=== PATIENT | male | born 1950 ===

== ENCOUNTER 2017-03-23 12:11 | Emergency (ER) | payer MEDICARE ==
[2017-03-23 13:23] VITALS: BMI 26.1
[2017-03-23] MEDS ORDERED: Sodium Chloride 0.9% 1,000 ML IV STA (13:31)
[2017-03-23] MEDS ORDERED: Iohexol 240 (50 ml) ONE (13:51)
--- NOTE | 2017-03-23 14:06 | ED PDOC ---
Arrival/HPI - General Historian: Patient <EITAN SERVIN - Last Filed: 03/23/17 16:46> <Klever Davis DO - Last Filed: 03/23/17 18:40> - General Chief Complaint: GI Problem Time Seen by Provider: 03/23/17 13:31 - History of Present Illness Narrative History of Present Illness (Text): 03/23/17 14:02 Mr. Moreno is a 67 year old male with past medical history of HTN, elevated lipids who was sent to the ED by his PCP Dr. Sanchez for a 3 day history of diarrhea. He indicates that he has had watery discharge diarrhea 15 minutes after eating for the past three days. He expresses limited oral intake for this reason for the past three days. He credits his dizziness and weakness to his presenting illness. He denies any blood or mucous with his stools. He denies any fever, abdominal pain, sick contacts or travel. He does report that he did eat at a [employer] food restaurant on Tuesday that could potentially be the reason for his symptoms. (EITAN SERVIN) Past Medical History - Provider Review Nursing Documentation Reviewed: Yes - Travel History Have you recently traveled outside [place] w/in the past 3 mons?: No - Past History Past History: Non-Contributing - Infectious Disease Hx of Infectious Diseases: None - Past Medical History Past Medical History: Non-Contributing - Cardiac Hx Hypertension: Yes - Psychiatric Hx Substance Use: No - Anesthesia Hx Anesthesia: No Hx Anesthesia Reactions: No <EITNA SERVIN - Last Filed: 03/23/17 16:46> Family/Social History Family/Social History: No Known Family HX Smoking Status: Current Some Days Smoker Hx Alcohol Use: No Hx Substance Use: No <EITAN SERVIN - Last Filed: 03/23/17 16:46> Allergies/Home Meds <EITAN SERVIN - Last Filed: 03/23/17 16:46> <Klever Davis DO - Last Filed: 03/23/17 18:40> Allergies/Adverse Reactions: Allergies No Known Allergies Allergy (Verified 07/21/16 10:58) Home Medications: Home Meds Medication Instructions Recorded Confirmed Valsartan 320 mg PO DAILY 07/21/16 07/21/16 Review of Systems - Review of Systems Constitutional: Fatigue, Other (weakness) Eyes: absent: Vision Changes ENT: absent: Hearing Changes Respiratory: absent: SOB, Cough Cardiovascular: absent: Chest Pain, Palpitations Gastrointestinal: Stool Changes, Diarrhea, Nausea. absent: Abdominal Pain, Vomiting, Appetite Changes, Hematochezia Genitourinary Male: absent: Dysuria, Frequency Musculoskeletal: absent: Arthralgias, Myalgias Skin: absent: Rash, Pruritis Neurological: Dizziness. absent: Headache Endocrine: absent: Diaphoresis, Polyuria Psychiatric: absent: Anxiety, Depression <EITAN SERVIN - Last Filed: 03/23/17 16:46> Physical Exam Vital Signs Reviewed: Yes Temperature: Afebrile Blood Pressure: Normal Pulse: Bradycardic Respiratory Rate: Normal Appearance: Positive for: Well-Appearing Pain Distress: None Mental Status: Positive for: Alert and Oriented X 3 - Systems Exam Head: Present: Atraumatic, Normocephalic Pupils: Present: PERRL Extroacular Muscles: Present: EOMI Conjunctiva: Present: Normal Mouth: Present: Moist Mucous Membranes Neck: Present: Normal Range of Motion Respiratory/Chest: Present: Clear to Auscultation, Good Air Exchange. No: Respiratory Distress, Accessory Muscle Use Cardiovascular: Present: Regular Rate and Rhythm, Normal S1, S2 Abdomen: Present: Normal Bowel Sounds. No: Tenderness, Distention, Peritoneal Signs, Rebound, Guarding Upper Extremity: Present: Normal Inspection, NORMAL PULSES. No: Cyanosis, Edema Lower Extremity: Present: Normal Inspection, NORMAL PULSES Neurological: Present: GCS=15, CN II-XII Intact, Speech Normal Skin: Present: Warm, Dry Psychiatric: Present: Alert, Oriented x 3 <EITAN SERVIN - Last Filed: 03/23/17 16:46> Medical Decision Making <EITAN SERVIN - Last Filed: 03/23/17 16:46> <Klever Davis DO - Last Filed: 03/23/17 18:40> ED Course and Treatment: 03/23/17 14:09 Impression: Mr. Moreno is a 67 year old male complaining of three day history of diarrhea. Differential Diagnosis included but are not limited to: - Viral gastroenteritis Plan: - CBC, CMP, Lipase - IVF 0.9% saline - Zofran -- Reassess and disposition Progress Notes: CT Scan w/ contrast results unremarkable 03/23/17 16:42 (EITAN SERVIN) Patient Seen With Resident: In agreement with resident note. Patient was seen and evaluated with resident, came up with plan and treatment together. A 67 year old male with diarrhea. Additional HPI as noted by resident. No acute findings on physical exam. Ordered CT abdomen and pelvis, labs and Urinalysis. Will give patient pepcid, zofran and IV fluids. (Klever Davis DO) - Lab Interpretations Lab Results: 03/23/17 14:04 03/23/17 14:04 Lab Results 03/23/17 16:00: Urine Color Yellow, Urine Appearance Clear, Urine pH 6.0, Ur Specific [place] 1.010, Urine Protein Negative, Urine Glucose (UA) Negative, Urine Ketones Negative, Urine Blood Negative, Urine Nitrate Negative, Urine Bilirubin Negative, Urine Urobilinogen 0.2, Ur Leukocyte Esterase Negative 03/23/17 14:04: Sodium 140, Potassium 4.3, Chloride 105, Carbon Dioxide 24, Anion Gap 15, BUN 18, Creatinine 0.9, Est GFR ( Amer) > 60, Est GFR (Non- Af Amer) > 60, Random Glucose 102, Calcium 9.2, Total Bilirubin 0.9, AST 24, ALT 37, Alkaline Phosphatase 65, Total Protein 7.6, Albumin 4.3, Globulin 3.3, Albumin/Globulin Ratio 1.3, Lipase 26 03/23/17 14:04: WBC 7.1, RBC 6.22 H, Hgb 14.0, Hct 42.4, MCV 68.2 L, MCH 22.5 L , MCHC 33.0, RDW 16.1 H, Plt Count 213, MPV 9.3, Gran % 65.5, Lymph % (Auto) 24.3, [place] % (Auto) 6.5 H, Eos % (Auto) 3.6, Baso % (Auto) 0.1, Gran # 4.67, Lymph # 1.7, [place] # 0.5, Eos # 0.3, Baso # 0.01 - RAD Interpretation Radiology Orders: 03/23/17 13:46 ABDOMEN & PELVIS [ABD PELVIS PO & IV CONTRAST] [CT] Stat - Medication Orders Current Medication Orders: Discontinued Medications Famotidine (Pepcid) 20 mg IVP STAT STA Stop: 03/23/17 13:32 Last Admin: 03/23/17 13:58 Dose: 20 mg Sodium Chloride (Sodium Chloride 0.9%) 1,000 mls @ 250 mls/hr IV .Q4H STA Stop: 03/23/17 17:30 Last Admin: 03/23/17 13:57 Dose: 250 mls/hr Iohexol (Omnipaque 240 (50 Ml)) Confirm Administered Dose 50 ml .ROUTE .STK-MED ONE Stop: 03/23/17 13:52 Last Admin: 03/23/17 17:05 Dose: Iohexol (Omnipaque 350 100 Ml) Confirm Administered Dose 350 mg .ROUTE .STK-MED ONE Stop: 03/23/17 15:09 Ondansetron HCl (Zofran Inj) 4 mg IVP STAT STA Stop: 03/23/17 13:32 Last Admin: 03/23/17 13:57 Dose: 4 mg - PA / WOOD MOLDER / Resident Statement / has reviewed & agrees with the documentation as recorded. / has examined the patient and agrees with the treatment plan. <EITAN SERVIN - Last Filed: 03/23/17 16:46> - Scribe Statement The provider has reviewed the documentation as recorded by the Scribe <Klever Davis DO - Last Filed: 03/23/17 18:40> - Scribe Statement Celia Manuel Provider Scribe Attestation: All medical record entries made by the Scribe were at my direction and personally dictated by me. I have reviewed the chart and agree that the record accurately reflects my personal performance of the history, physical exam, medical decision making, and the department course for this patient. I have also personally directed, reviewed, and agree with the discharge instructions and disposition. (Klever Davis DO) Disposition/Present on Arrival - Present on Arrival Any Indicators Present on Arrival: No History of DVT/PE: No History of Uncontrolled Diabetes: No Urinary Catheter: No History of Decub. Ulcer: No History Surgical Site Infection Following: None - Disposition Have Diagnosis and Disposition been Completed?: Yes Disposition Time: 16:15 <EITAN SERVIN - Last Filed: 03/23/17 16:46> <Klever Davis DO - Last Filed: 03/23/17 18:40> - Disposition Diagnosis: Viral gastroenteritis Disposition: HOME/ ROUTINE Patient Problems: Current Active Problems Problem Status Onset Viral gastroenteritis Acute Condition: GOOD Discharge Instructions (ExitCare): Gastroenteritis (ED) Additional Instructions: Mr. Moreno, thank you for letting us take care of you today. Your provider was Dr. Servin. You were treated for Viral Gastroenteritis. The emergency medical care you received today was directed at your acute symptoms. If you were prescribed any medication, please fill it and take as directed. It may take several days for your symptoms to resolve. Return to the Emergency Department if your symptoms worsen, do not improve, or if you have any other problems. Please contact your doctor or call one of the physicians/clinics you have been referred to that are listed on the Patient Visit Information form that is included in your discharge packet. Bring any paperwork you were given at discharge with you along with any medications you are taking to your follow up visit. Our treatment cannot replace ongoing medical care by a primary care provider (PCP) outside of the emergency department. Thank you for allowing the [facility] team to be part of your care today. Follow up with Dr. Sanchez in one week. Prescriptions: metroNIDAZOLE [Flagyl] 500 mg PO Q8 #21 tab Referrals: Griffin Sanchez MD [Primary Care Provider] - Follow up with primary
[2017-03-23 14:08] LABS: BASO # 0.01 K/mm3 (0.0-2.0); BASO % 0.1 % (0.0-3.0); EOS # 0.3 (0.0-0.7); EOS % 3.6 % (1.5-5.0); GRAN # 4.67 (1.4-6.5); GRAN % 65.5 % (50.0-68.0); LYMPH # 1.7 (1.2-3.4); LYMPH % 24.3 % (22.0-35.0); MEAN CELL VOLUME 68.2 fL (80.0-105.0); MEAN CORPUSCULAR HEMOGLOBIN 22.5 pg (25.0-35.0); MEAN PLATELET VOLUME 9.3 fl (7.0-11.0); MONO # 0.5 (0.1-0.6); MONO % 6.5 % (1.0-6.0); PLATELET COUNT 213 10^3/uL (120.0-450.0); RBC 6.22 10^6/uL (3.5-6.1); RED CELL DISTRIBUTION WIDTH 16.1 % (11.5-14.5); WHITE BLOOD COUNT 7.1 10^3/ul (4.5-11.0)
[2017-03-23 14:17] LABS: ALB/GLOB RATIO 1.3 (1.1-1.8); ALBUMIN 4.3 g/dL (3.0-4.8); ALT/SGPT 37 U/L (7-56); AST/SGOT 24 U/L (15-59); BLOOD UREA NITROGEN 18 mg/dL (7-21); CALCIUM 9.2 mg/dL (8.4-10.5); GFR AFRICAN-AMERICAN > 60; GFR NON-AFRICAN AMERICAN > 60; LIPASE 26 U/L (23-300)
[2017-03-23] MEDS ORDERED: Iohexol 350 MG/100 ML VIAL ONE (15:08)
[2017-03-23 16:10] LABS: URINE BILIRUBIN NEGATIVE (NEGATIVE); URINE BLOOD NEGATIVE (NEGATIVE); URINE GLUCOSE (UA) NEGATIVE (NEGATIVE); URINE LEUKOCYTE ESTERASE NEGATIVE Leu/uL (NEGATIVE); URINE NITRATE NEGATIVE (NEGATIVE); URINE PROTEIN NEGATIVE mg/dL (<30 mg/dL); URINE UROBILINOGEN 0.2 E.U./dL (<1 E.U./dL)
[2017-03-23 16:11] LABS: URINE APPEARANCE CLEAR (CLEAR); URINE COLOR YELLOW (YELLOW)
--- NOTE | 2017-03-23 16:23 | CT ---
PROCEDURE: CT Abdomen and Pelvis with contrast HISTORY: diffuse abdominal tenderness with diarrhea COMPARISON: None. TECHNIQUE: Contrast dose: 95 cc of Omni 350 Radiation dose: Total exam DLP = 679 mGy-cm. This CT exam was performed using one or more of the following dose reduction techniques: Automated exposure control, adjustment of the mA and/or kV according to patient size, and/or use of iterative reconstruction technique. FINDINGS: LOWER THORAX: Unremarkable. LIVER: Unremarkable. No gross lesion or ductal dilatation. GALLBLADDER AND BILE DUCTS: Unremarkable. PANCREAS: Unremarkable. No gross lesion or ductal dilatation. SPLEEN: Unremarkable. ADRENALS: Unremarkable. No mass. KIDNEYS AND URETERS: Unremarkable. No hydronephrosis. No solid mass. VASCULATURE: Unremarkable. No aortic aneurysm. BOWEL: Unremarkable. No obstruction. No gross mural thickening. APPENDIX: Normal appendix. PERITONEUM: Unremarkable. No free fluid. No free air. LYMPH NODES: Unremarkable. No enlarged lymph nodes. BLADDER: Unremarkable. REPRODUCTIVE: Unremarkable. BONES: No acute fracture. OTHER FINDINGS: None. IMPRESSION: No acute findings. No evidence of colitis
[2017-03-23 16:35] VITALS: BP 124/73; PULSE 60; RESP 18; TEMP 98.8; O2SAT 100
== END 2017-03-23 18:45 | disposition home or self-care (01) ==
LOC: ED 12:11
DX: A08.4 Viral intestinal infection, unspecified (principal); I10 Essential (primary) hypertension
CPT/HCPCS: 74177; 80053; 81003; 83690; 85025; 96374; 96375; 99283; J2405; J7040; Q9966; Q9967